=== PATIENT | female | born 1980 | race Caucasian/White ===

== ENCOUNTER 2024-09-12 04:48 | Emergency (ER) | payer MEDICAID ==
[~2024-09-12] VITALS: Ht 157.5 cm; Wt 76.4 kg
[~2024-09-12 04:48] MED LIST: DOCU-119 PO; FERR325T27 PO
[2024-09-12 05:13] VITALS: TEMP 98.205296
[2024-09-12] MEDS: KETOROLAC TROMETHAMINE 60 MG/2 ML VIAL IM ONE (06:26)
[2024-09-12] MEDS: ACETAMINOPHEN 500 MG TABLET PO ONE (06:27)
[2024-09-12 06:40] LABS: CALCIUM, TOTAL 8.3 mg/dL (8.8-10.5); CREATININE 0.47 mg/dL (0.60-1.30); GLOMERULAR FILTR. RATE CALC > 60 mL/min (>60); GLUCOSE,RANDOM 98 mg/dL (70-110); SODIUM SERUM 140 mmol/L (136-145); UREA NITROGEN, BLOOD 11 mg/dL (7-18)
[2024-09-12 06:47] LABS: PLATELET COUNT (AUTO) 304 K/uL (150-450); RED BLOOD CELL COUNT(AUTO) 4.47 MIL/uL (4.00-5.20); RED CELL DISTRIBUTION WIDTH 14.3 % (11.5-14.5); WHITE BLOOD COUNT (AUTO) 7.6 K/uL (4.5-11.0)
[2024-09-12] MEDS: POTASSIUM CHLORIDE 20 MEQ ER TABLET PO ONE (06:50)
[2024-09-12 06:58] VITALS: BP 133/77; PULSE 67; RESP 15; O2SAT 100
[2024-09-12] MEDS ORDERED: ACET-2080 PO (07:05)
[2024-09-12] MEDS ORDERED: METH-659 PO (07:05)
[2024-09-12] MEDS ORDERED: IBUP-1554 PO (07:05)
== END 2024-09-12 07:20 | disposition home or self-care (01) ==
LOC: EMS 04:52
DX: R10.12 Left upper quadrant pain (principal); D50.9 Iron deficiency anemia, unspecified; E87.6 Hypokalemia; Z79.899 Other long term (current) drug therapy
CPT/HCPCS: 99285; 71045; 80048; 84703; 85025; 36415; 93005; 96372; J1885